=== PATIENT | male | born 1975 | race Caucasian/White ===

== ENCOUNTER 2016-07-01 11:41 | Emergency (ER) | payer OTHER ==
[~2016-07-01] VITALS: Ht 177.8 cm; Wt 89.2 kg
[~2016-07-01 11:41] MED LIST: COLACE100 MG PO; ENDOCET 5-3251 EACH PO; FLEXERIL10 MG PO; FLOMAX0.4 MG PO; FLONASE16 G1 BOTH NARES; HYCODAN SYRUP480 ML PO; MOBIC15 MG PO; MOTRIN600 MG PO; MOTRIN800 MG PO; MUCUS ER600 MG PO; NAPROSYN500 MG PO; NAPROXEN500 MG PO; NOHOMEMEDS; NORCO 5/3251 TABLET PO; OXYCODONE HCL5 MG PO; PERCOCET 10/1 TABLET PO; PERCOCET 5/31 TABLET PO; PERCOCET 7.51 TABLET PO; PHENERGAN-CODE120 ML PO; PRILOSEC40 MG PO; Percocet 5/325,Endoc PO; REGLAN10 MG PO; SKELAXIN800 MG PO; TAMSULOSIN HCL0.4 MG PO; TESSALON PERLE100 MG PO; TORADOL10 MG PO; ULTRAM50 MG PO; VENTOLIN HFA18 GM IH; ZOFRAN ODT4 MG PO; ZOFRAN ODT8 MG PO; ZOFRAN4 MG PO; Zofran PO
[2016-07-01 12:47] LABS: ADD MIUA? NO; BILIRUBIN NEGATIVE; BLOOD NEGATIVE; COLOR YELLOW ((YELLOW)); GLUCOSE (STRIP) NEGATIVE; KETONES NEGATIVE; LEUKOCYTES NEGATIVE; NITRITE NEGATIVE; PROTEIN (STRIP) NEGATIVE; SPECIFIC GRAVITY 1.022 (1.000-1.030); UROBILINOGEN 0.2 MG/DL (0.2-1.0)
[2016-07-01 13:07] LABS: EOSINOPHIL COUNT 0.1 K/uL (0-0.3); HEMATOCRIT 39.8 % (38.0-50.0); IMMATURE GRANULOCYTE (%) 0.1 % (0.0-0.7); IMMATURE GRANULOCYTE COUNT 0.1 K/uL; LYMPHOCYTE COUNT 1.9 K/uL (1.0-2.8); MCH 31.7 PG (29.0-34.0); MCHC 34.9 G/DL (30.0-36.0); MCV 90.7 FL (86-99); MEAN PLAT.VOLUME 10.3 uM^3 (9.0-12.4); MONOCYTE (%) 7.5 % (3-12); MONOCYTE COUNT 0.5 K/uL (0-0.8); NEUTROPHIL (%) 63.4 % (45-76); NEUTROPHIL COUNT 4.3 K/uL (1.8-6.4); PLATELET COUNT 224 K/uL (156-360); RBC DIS.WIDTH-CV 12.1 % (11.8-14.6); RBC DIS.WIDTH-SD 39.2 % (39-53); RED BLOOD COUNT 4.39 M/uL (4.00-5.50); WHITE BLOOD COUNT 6.8 K/uL (4.1-10.2)
[2016-07-01 13:19] LABS: CHLORIDE 108 mEq/L (99-109); POTASSIUM 3.8 mEq/L (3.7-5.4); SODIUM 142 mEq/L (136-147)
[2016-07-01 13:21] LABS: GLUCOSE 104 mg/dL (70-99)
[2016-07-01 13:23] LABS: ANION GAP 9 MEQ/L (2-14); TOTAL BILIRUBIN 0.4 mg/dL (0.0-1.0)
[2016-07-01 13:25] LABS: ALKALINE PHOSPHATASE 69 IU/L (3-129); GFR ESTIMATE (CALCULATED) > 59 mL/min/
[2016-07-01 13:26] LABS: UREA NITROGEN (BUN) 14 mg/dL (9-23)
[2016-07-01 13:28] LABS: LIPASE 251 U/L (1.0-51.0)
[2016-07-01] MEDS ORDERED: ZOFRAN ODT8 MG PO (16:12)
[2016-07-01] MEDS ORDERED: PERCOCET 5/31 TABLET PO (16:12)
[2016-07-01 16:36] VITALS: BP 140/75
== END 2016-07-01 16:37 | disposition home or self-care (01) ==
LOC: EXP 11:41 → EME 11:41 → EXP 16:37
PROVIDERS: Physician Assistant
DX: K85.90 Acute pancreatitis without necrosis or infection, unspecified (principal); S90.31XA Contusion of right foot, initial encounter; W20.8XXA Other cause of strike by thrown, projected or falling object, initial encounter; R19.7 Diarrhea, unspecified; Z87.442 Personal history of urinary calculi; Z87.891 Personal history of nicotine dependence; Z98.890 Other specified postprocedural states
CPT/HCPCS: 73630; 76705; 80053; 81003; 83690; 85025; 99281; 99284

== ENCOUNTER 2016-07-17 09:16 | Emergency (ER) | payer OTHER ==
[~2016-07-17] VITALS: Ht 177.8 cm; Wt 88.3 kg
[2016-07-17 09:41] LABS: ADD MIUA? NO; BILIRUBIN NEGATIVE; BLOOD NEGATIVE; COLOR YELLOW ((YELLOW)); GLUCOSE (STRIP) NEGATIVE; KETONES NEGATIVE; LEUKOCYTES NEGATIVE; NITRITE NEGATIVE; PROTEIN (STRIP) NEGATIVE; SPECIFIC GRAVITY 1.024 (1.000-1.030); UCUL ADDED? NO; UROBILINOGEN 0.2 MG/DL (0.2-1.0)
[2016-07-17 09:52] LABS: HEMATOCRIT 44.7 % (38.0-50.0); MCH 30.5 PG (29.0-34.0); MCHC 34.2 G/DL (30.0-36.0); MCV 89.2 FL (86-99); MEAN PLAT.VOLUME 10.7 uM^3 (9.0-12.4); PLATELET COUNT 259 K/uL (156-360); RBC DIS.WIDTH-CV 12.1 % (11.8-14.6); RBC DIS.WIDTH-SD 38.7 % (39-53); RED BLOOD COUNT 5.01 M/uL (4.00-5.50)
[2016-07-17 10:04] LABS: CHLORIDE 105 mEq/L (99-109); POTASSIUM 3.9 mEq/L (3.7-5.4); SODIUM 139 mEq/L (136-147)
[2016-07-17 10:06] LABS: GLUCOSE 100 mg/dL (70-99)
[2016-07-17 10:08] LABS: ANION GAP 11 MEQ/L (2-14)
[2016-07-17 10:11] LABS: GFR ESTIMATE (CALCULATED) > 59 mL/min/; UREA NITROGEN (BUN) 21 mg/dL (9-23)
[2016-07-17 10:20] LABS: TOTAL BILIRUBIN 0.6 mg/dL (0.0-1.0)
[2016-07-17 10:21] LABS: ALKALINE PHOSPHATASE 76 IU/L (3-129)
[2016-07-17 10:24] LABS: DIRECT BILIRUBIN 0.2 mg/dL (0.0-0.3)
[2016-07-17 10:25] LABS: LIPASE 155 U/L (1.0-51.0)
[2016-07-17 11:05] LABS: TROP-I INTERPRETATION NEGATIVE; TROPONIN-I < 0.01 ng/mL (0.0-0.30)
[2016-07-17] MEDS ORDERED: PERCOCET 5/31 TABLET PO (12:13)
[2016-07-17] MEDS ORDERED: ZOFRAN ODT4 MG PO (12:13)
[2016-07-17] MEDS ORDERED: FLOMAX0.4 MG PO (12:13)
[2016-07-17 12:30] VITALS: BP 138/88
== END 2016-07-17 12:30 | disposition home or self-care (01) ==
LOC: EME 09:16 → EXP 09:16
PROVIDERS: Nurse Practitioner Family
DX: N20.0 Calculus of kidney (principal); K85.90 Acute pancreatitis without necrosis or infection, unspecified; Z87.442 Personal history of urinary calculi; Z87.891 Personal history of nicotine dependence; Z88.8 Allergy status to other drugs, medicaments and biological substances; Z88.5 Allergy status to narcotic agent
CPT/HCPCS: 74177; 80048; 80076; 81003; 83690; 84484; 85027; 99281; 99285; J2405; J3010; J7030

== ENCOUNTER 2016-07-28 09:58 | Emergency (ER) | payer OTHER ==
[~2016-07-28] VITALS: Ht 177.8 cm; Wt 89.7 kg
[2016-07-28 11:17] LABS: EOSINOPHIL (%) 2.7 % (0-5); EOSINOPHIL COUNT 0.2 K/uL (0-0.3); HEMATOCRIT 41.7 % (38.0-50.0); IMMATURE GRANULOCYTE (%) 0.2 % (0.0-0.7); IMMATURE GRANULOCYTE COUNT 0.1 K/uL; LYMPHOCYTE COUNT 1.8 K/uL (1.0-2.8); MCH 31.1 PG (29.0-34.0); MCHC 34.5 G/DL (30.0-36.0); MCV 90.1 FL (86-99); MEAN PLAT.VOLUME 10.9 uM^3 (9.0-12.4); MONOCYTE (%) 6.1 % (3-12); MONOCYTE COUNT 0.3 K/uL (0-0.8); NEUTROPHIL (%) 59.1 % (45-76); NEUTROPHIL COUNT 3.3 K/uL (1.8-6.4); PLATELET COUNT 240 K/uL (156-360); RBC DIS.WIDTH-CV 12.1 % (11.8-14.6); RBC DIS.WIDTH-SD 38.9 % (39-53); RED BLOOD COUNT 4.63 M/uL (4.00-5.50); WHITE BLOOD COUNT 5.6 K/uL (4.1-10.2)
[2016-07-28 11:23] LABS: CHLORIDE 106 mEq/L (99-109); POTASSIUM 4.1 mEq/L (3.7-5.4); SODIUM 140 mEq/L (136-147)
[2016-07-28 11:25] LABS: GLUCOSE 100 mg/dL (70-99)
[2016-07-28 11:27] LABS: ANION GAP 8 MEQ/L (2-14); TOTAL BILIRUBIN 0.2 mg/dL (0.0-1.0)
[2016-07-28 11:28] LABS: ADD MIUA? NO; BILIRUBIN NEGATIVE; BLOOD NEGATIVE; COLOR YELLOW ((YELLOW)); GLUCOSE (STRIP) NEGATIVE; KETONES NEGATIVE; LEUKOCYTES NEGATIVE; NITRITE NEGATIVE; PROTEIN (STRIP) NEGATIVE; SPECIFIC GRAVITY 1.014 (1.000-1.030); UCUL ADDED? NO; UROBILINOGEN 0.2 MG/DL (0.2-1.0)
[2016-07-28 11:29] LABS: ALKALINE PHOSPHATASE 70 IU/L (3-129); GFR ESTIMATE (CALCULATED) > 59 mL/min/
[2016-07-28 11:30] LABS: UREA NITROGEN (BUN) 18 mg/dL (9-23)
[2016-07-28 11:32] LABS: LIPASE 90 U/L (1.0-51.0)
[2016-07-28] MEDS ORDERED: PERCOCET 5/31 TABLET PO (12:21)
[2016-07-28 12:52] VITALS: BP 123/64
== END 2016-07-28 12:53 | disposition home or self-care (01) ==
LOC: EXP 09:58 → EME 09:58 → EXP 12:53
PROVIDERS: Physician Assistant
DX: R10.9 Unspecified abdominal pain (principal); R74.8 Abnormal levels of other serum enzymes; Z87.442 Personal history of urinary calculi
CPT/HCPCS: 80053; 81003; 83690; 85025; 99281; 99285; J1885; J2270; J2405; J7030

== ENCOUNTER 2016-08-09 19:39 | Emergency (ER) | payer OTHER ==
[~2016-08-09] VITALS: Ht 177.8 cm; Wt 90.4 kg
[2016-08-09 20:45] LABS: HEMATOCRIT 44.9 % (38.0-50.0); MCH 30.7 PG (29.0-34.0); MCHC 33.6 G/DL (30.0-36.0); MCV 91.3 FL (86-99); MEAN PLAT.VOLUME 10.3 uM^3 (9.0-12.4); PLATELET COUNT 279 K/uL (156-360); RBC DIS.WIDTH-CV 11.9 % (11.8-14.6); RED BLOOD COUNT 4.92 M/uL (4.00-5.50)
[2016-08-09 20:47] LABS: WHITE BLOOD COUNT 7.4 K/uL (4.1-10.2)
[2016-08-09 20:58] LABS: CHLORIDE 103 mEq/L (99-109); POTASSIUM 4.1 mEq/L (3.7-5.4); SODIUM 141 mEq/L (136-147)
[2016-08-09 21:00] LABS: GLUCOSE 102 mg/dL (70-99)
[2016-08-09 21:01] LABS: ANION GAP 11 MEQ/L (2-14)
[2016-08-09 21:02] LABS: TOTAL BILIRUBIN 0.2 mg/dL (0.0-1.0)
[2016-08-09 21:03] LABS: ALKALINE PHOSPHATASE 78 IU/L (3-129)
[2016-08-09 21:04] LABS: GFR ESTIMATE (CALCULATED) > 59 mL/min/
[2016-08-09 21:05] LABS: UREA NITROGEN (BUN) 18 mg/dL (9-23)
[2016-08-09 21:07] LABS: LIPASE 207 U/L (1.0-51.0)
[2016-08-09 21:40] LABS: ADD MIUA? NO; BILIRUBIN NEGATIVE; BLOOD NEGATIVE; COLOR YELLOW ((YELLOW)); GLUCOSE (STRIP) NEGATIVE; KETONES NEGATIVE; LEUKOCYTES NEGATIVE; NITRITE NEGATIVE; PROTEIN (STRIP) NEGATIVE; UCUL ADDED? NO; UROBILINOGEN 0.2 MG/DL (0.2-1.0)
[2016-08-09] MEDS ORDERED: PERCOCET 5/31 TABLET PO (23:26)
[2016-08-09 23:43] VITALS: BP 140/89
== END 2016-08-09 23:44 | disposition home or self-care (01) ==
LOC: EME 19:39 → EXP 19:39
PROVIDERS: Physician Assistant
DX: K85.90 Acute pancreatitis without necrosis or infection, unspecified (principal); K21.9 Gastro-esophageal reflux disease without esophagitis; Z87.442 Personal history of urinary calculi; Z87.891 Personal history of nicotine dependence
CPT/HCPCS: 74177; 76705; 80053; 81003; 83690; 85027; 99281; 99285; J2270; J2405; J7030

== ENCOUNTER → 2016-08-13 | Outpatient (CLI) | payer OTHER ==
[~2016-08-13] VITALS: Ht 179.1 cm; Wt 88.9 kg
[2016-08-13 13:09] LABS: AMPHETAMINES QUANT VALUE 0 NG/ML; BARBITUATES QUANT VALUE 0 NG/ML; BENZODIAZEPINES QUANT VALUE 0 NG/ML; BENZODIAZEPINES, URINE SCREEN Negative (200 ng/mL); OPIATES QUANTITATIVE VALUE 0 NG/ML; PHENCYCLIDINE QUANT VALUE 0 NG/ML
== END | disposition home or self-care (01) ==
LOC: AMB 11:58 → OPR 12:00 → AMB 12:00
PROVIDERS: Internal Medicine Gastroenterology
DX: K85.90 Acute pancreatitis without necrosis or infection, unspecified (principal); R10.13 Epigastric pain; Z88.5 Allergy status to narcotic agent; Z88.8 Allergy status to other drugs, medicaments and biological substances
CPT/HCPCS: 80306 90; J2405

== ENCOUNTER 2016-08-15 20:58 | Emergency (ER) | payer OTHER ==
[~2016-08-15] VITALS: Ht 177.8 cm; Wt 88.2 kg
[2016-08-15 21:44] LABS: HEMATOCRIT 45.1 % (38.0-50.0); MCH 30.3 PG (29.0-34.0); MCV 91.7 FL (86-99); MEAN PLAT.VOLUME 10.3 uM^3 (9.0-12.4); PLATELET COUNT 288 K/uL (156-360); RBC DIS.WIDTH-CV 11.9 % (11.8-14.6); RBC DIS.WIDTH-SD 39.9 % (39-53); RED BLOOD COUNT 4.92 M/uL (4.00-5.50); WHITE BLOOD COUNT 6.6 K/uL (4.1-10.2)
[2016-08-15 21:52] LABS: CHLORIDE 105 mEq/L (99-109); POTASSIUM 4.1 mEq/L (3.7-5.4); SODIUM 140 mEq/L (136-147)
[2016-08-15 21:54] LABS: GLUCOSE 103 mg/dL (70-99)
[2016-08-15 21:56] LABS: ANION GAP 9 MEQ/L (2-14)
[2016-08-15 21:58] LABS: ALKALINE PHOSPHATASE 77 IU/L (3-129); GFR ESTIMATE (CALCULATED) > 59 mL/min/
[2016-08-15 22:02] LABS: LIPASE 56 U/L (1.0-51.0)
[2016-08-15 22:07] LABS: TOTAL BILIRUBIN 0.3 mg/dL (0.0-1.0); UREA NITROGEN (BUN) 23 mg/dL (9-23)
[2016-08-16 00:13] LABS: TROP-I INTERPRETATION NEGATIVE; TROPONIN-I < 0.01 ng/mL (0.0-0.30)
[2016-08-16 01:01] LABS: ADD MIUA? NO; BILIRUBIN NEGATIVE; BLOOD NEGATIVE; COLOR YELLOW ((YELLOW)); GLUCOSE (STRIP) NEGATIVE; KETONES NEGATIVE; LEUKOCYTES NEGATIVE; NITRITE NEGATIVE; PROTEIN (STRIP) NEGATIVE; SPECIFIC GRAVITY 1.027 (1.000-1.030); UCUL ADDED? NO; UROBILINOGEN 0.2 MG/DL (0.2-1.0)
[2016-08-16 01:48] LABS: TROP-I INTERPRETATION NEGATIVE; TROPONIN-I < 0.01 ng/mL (0.0-0.30)
[2016-08-16 02:06] VITALS: BP 105/60
== END 2016-08-16 02:06 | disposition home or self-care (01) ==
LOC: EME 20:58
PROVIDERS: Emergency Medicine
DX: R10.13 Epigastric pain (principal); R07.89 Other chest pain; Z87.19 Personal history of other diseases of the digestive system; R11.0 Nausea; N20.0 Calculus of kidney; Z87.442 Personal history of urinary calculi; Z87.891 Personal history of nicotine dependence
CPT/HCPCS: 74176; 80053; 81003; 83690; 84484; 85025; 85027; 93005; 99281; 99284; J1885; J2765; J7030

== ENCOUNTER 2016-12-09 01:36 | Emergency (ER) | payer OTHER ==
[~2016-12-09] VITALS: Ht 177.8 cm; Wt 91.0 kg
[2016-12-09 02:15] LABS: HEMATOCRIT 42.4 % (38.0-50.0); MCH 30.8 PG (29.0-34.0); MCHC 34.2 G/DL (30.0-36.0); PLATELET COUNT 244 K/uL (156-360); RBC DIS.WIDTH-CV 11.9 % (11.8-14.6); RBC DIS.WIDTH-SD 39.6 % (39-53); RED BLOOD COUNT 4.71 M/uL (4.00-5.50); WHITE BLOOD COUNT 11.1 K/uL (4.1-10.2)
[2016-12-09 02:19] LABS: ADD MIUA? YES; BILIRUBIN NEGATIVE; BLOOD SMALL; COLOR YELLOW ((YELLOW)); GLUCOSE (STRIP) NEGATIVE; KETONES NEGATIVE; LEUKOCYTES NEGATIVE; NITRITE NEGATIVE; PROTEIN (STRIP) NEGATIVE; SPECIFIC GRAVITY 1.021 (1.000-1.030); UROBILINOGEN 0.2 MG/DL (0.2-1.0)
[2016-12-09 02:27] LABS: CHLORIDE 108 mEq/L (99-109); POTASSIUM 3.8 mEq/L (3.7-5.4); SODIUM 139 mEq/L (136-147)
[2016-12-09 02:29] LABS: GLUCOSE 121 mg/dL (70-99)
[2016-12-09 02:30] LABS: ANION GAP 9 MEQ/L (2-14)
[2016-12-09 02:31] LABS: TOTAL BILIRUBIN 0.3 mg/dL (0.0-1.0)
[2016-12-09 02:31] LABS: BACTERIA NONE SEEN /HPF; EPITHELIAL CELLS RARE /HPF; MUCUS TRACE /LPF; RED BLOOD CELLS 0-5 /HPF (0-5); UCUL ADDED? NO; WHITE BLOOD CELLS 0-5 /HPF (0-5)
[2016-12-09 02:33] LABS: ALKALINE PHOSPHATASE 79 IU/L (3-129); GFR ESTIMATE (CALCULATED) > 59 mL/min/
[2016-12-09 02:34] LABS: UREA NITROGEN (BUN) 18 mg/dL (9-23)
[2016-12-09] MEDS ORDERED: PERCOCET 5/31 TABLET PO (04:05)
[2016-12-09] MEDS ORDERED: ZOFRAN8 MG PO (04:05)
[2016-12-09 04:10] LABS: LIPASE 54 U/L (1.0-51.0)
[2016-12-09 04:21] VITALS: BP 152/81
== END 2016-12-09 04:22 | disposition home or self-care (01) ==
LOC: EME 01:36
DX: N20.0 Calculus of kidney (principal); Z87.442 Personal history of urinary calculi; Z88.6 Allergy status to analgesic agent; Z87.891 Personal history of nicotine dependence; Z87.19 Personal history of other diseases of the digestive system
CPT/HCPCS: 74176; 80053; 81003; 83690; 85027; 99281; 99285; J1885; J2405; J7030

== ENCOUNTER 2016-12-20 23:52 | Emergency (ER) | payer OTHER ==
[~2016-12-20] VITALS: Ht 177.8 cm; Wt 90.9 kg
[~2016-12-20 23:52] MED LIST changes: +ZOFRAN8 MG PO
[2016-12-21 00:31] LABS: HEMATOCRIT 43.5 % (38.0-50.0); MCH 30.7 PG (29.0-34.0); MCHC 35.2 G/DL (30.0-36.0); MCV 87.2 FL (86-99); MEAN PLAT.VOLUME 10.7 uM^3 (9.0-12.4); PLATELET COUNT 241 K/uL (156-360); RBC DIS.WIDTH-CV 11.9 % (11.8-14.6); RBC DIS.WIDTH-SD 38.1 % (39-53); RED BLOOD COUNT 4.99 M/uL (4.00-5.50); WHITE BLOOD COUNT 9.1 K/uL (4.1-10.2)
[2016-12-21 00:40] LABS: CHLORIDE 108 mEq/L (99-109); POTASSIUM 3.8 mEq/L (3.7-5.4); SODIUM 141 mEq/L (136-147)
[2016-12-21 00:43] LABS: GLUCOSE 132 mg/dL (70-99)
[2016-12-21 00:44] LABS: ANION GAP 15 MEQ/L (2-14)
[2016-12-21 00:45] LABS: TOTAL BILIRUBIN 0.9 mg/dL (0.0-1.0)
[2016-12-21 00:46] LABS: ALKALINE PHOSPHATASE 82 IU/L (3-129); GFR ESTIMATE (CALCULATED) > 59 mL/min/
[2016-12-21 00:47] LABS: UREA NITROGEN (BUN) 19 mg/dL (9-23)
[2016-12-21 01:13] LABS: AMYLASE 47 IU/L (1-118)
[2016-12-21 01:13] LABS: ADD MEDTOX COMMENT Y; AMPHETAMINE NEGATIVE (500 ng/mL); BARBITURATES NEGATIVE (200 ng/mL); BENZODIAZEPINES NEGATIVE (150 ng/mL); COCAINE NEGATIVE (150 ng/mL); INTERNAL CONTROLS VALID? YES; METHADONE NEGATIVE (200 ng/mL); METHAMPHETAMINE NEGATIVE (500 ng/mL); OPIATES (MORPHINE) NEGATIVE (100 ng/mL); OXYCODONE PRESUMPTIVE POSITIVE (100 ng/mL); PHENCYCLIDINE NEGATIVE (25 ng/mL); PROPOXYPHENE NEGATIVE (300 ng/mL); THC CANNABINOIDS PRESUMPTIVE POSITIVE (50 ng/mL); TRICYCLIC ANTIDEPRESSANTS NEGATIVE (300 ng/mL)
[2016-12-21 01:19] LABS: MARIJUANA QUANT VALUE ND NG/ML
[2016-12-21 01:22] LABS: LIPASE 41 U/L (1.0-51.0)
[2016-12-21 01:33] LABS: COLOR YELLOW ((YELLOW)); GLUCOSE (STRIP) NEGATIVE; LEUKOCYTES NEGATIVE; NITRITE NEGATIVE; PH, URINE 7.5 (5-8); PROTEIN (STRIP) TRACE; SPECIFIC GRAVITY 1.015 (1.000-1.030)
[2016-12-21 01:34] LABS: ADD MIUA? NO; BILIRUBIN NEGATIVE; BLOOD NEGATIVE; KETONES MODERATE; UCUL ADDED? NO; UROBILINOGEN 0.2 MG/DL (0.2-1.0)
[2016-12-21 03:03] VITALS: BP 130/71
[2016-12-21] MEDS ORDERED: ZOFRAN ODT4 MG PO (03:07)
== END 2016-12-21 03:14 | disposition home or self-care (01) ==
LOC: EME 23:52
PROVIDERS: Physician Assistant
DX: E86.0 Dehydration (principal); R11.2 Nausea with vomiting, unspecified; R19.7 Diarrhea, unspecified; K21.9 Gastro-esophageal reflux disease without esophagitis; Z87.891 Personal history of nicotine dependence; M54.5 Low back pain
CPT/HCPCS: 74177; 80053; 81003; 82150; 83690; 84999; 85027; 99281; 99285; J2405; J7030

== ENCOUNTER 2017-07-01 12:57 | Emergency (ER) | payer OTHER ==
[~2017-07-01] VITALS: Ht 177.8 cm; Wt 94.7 kg
[2017-07-01 14:06] LABS: HEMATOCRIT 46.4 % (38.0-50.0); HEMOGLOBIN 16.2 G/DL (12.5-16.6); MCH 30.3 PG (29.0-34.0); MCHC 34.9 G/DL (30.0-36.0); MCV 86.9 FL (86-99); PLATELET COUNT 291 K/uL (156-360); RBC DIS.WIDTH-CV 12.1 % (11.8-14.6); RBC DIS.WIDTH-SD 38.5 % (39-53); RED BLOOD COUNT 5.34 M/uL (4.00-5.50); WHITE BLOOD COUNT 7.5 K/uL (4.1-10.2)
[2017-07-01 14:10] LABS: APPEARANCE SL.HAZY ((CLEAR)); BILIRUBIN NEGATIVE; BLOOD NEGATIVE; COLOR YELLOW ((YELLOW)); GLUCOSE (STRIP) NEGATIVE; KETONES NEGATIVE; LEUKOCYTES NEGATIVE; NITRITE NEGATIVE; PROTEIN (STRIP) NEGATIVE; SPECIFIC GRAVITY 1.021 (1.000-1.030); UROBILINOGEN 0.2 MG/DL (0.2-1.0)
[2017-07-01 14:16] LABS: BACTERIA RARE /HPF; EPITHELIAL CELLS RARE /HPF; MUCUS 1+ /LPF; RED BLOOD CELLS 0-5 /HPF (0-5); UCUL ADDED? YES
[2017-07-01 14:37] LABS: ALBUMIN 4.7 g/dL (3.2-4.8)
[2017-07-01 14:38] LABS: CHLORIDE 104 mEq/L (99-109); POTASSIUM 4.6 mEq/L (3.7-5.4); SODIUM 137 mEq/L (136-147)
[2017-07-01 14:40] LABS: GLUCOSE 115 mg/dL (70-99)
[2017-07-01 14:42] LABS: TOTAL BILIRUBIN 0.6 mg/dL (0.0-1.0)
[2017-07-01 14:43] LABS: ALKALINE PHOSPHATASE 86 IU/L (3-129)
[2017-07-01 14:44] LABS: CREATININE 1.1 mg/dL (0.6-1.3); GFR ESTIMATE (CALCULATED) > 59 mL/min/ (58.99-99999)
[2017-07-01 14:45] LABS: AST (GOT) 22 IU/L (2-34); UREA NITROGEN (BUN) 18 mg/dL (9-23)
[2017-07-01 14:46] LABS: ALT (GPT) 25 IU/L (3-49)
[2017-07-01] MEDS ORDERED: CIPRO500 MG PO (16:49)
[2017-07-01] MEDS ORDERED: ZOFRAN4 MG PO (16:52)
[2017-07-01 16:55] VITALS: BP 132/73
== END 2017-07-01 16:55 | disposition home or self-care (01) ==
LOC: RME 12:57 → EME 12:57 → RME 16:55
PROVIDERS: Physician Assistant
DX: N10 Acute pyelonephritis (principal); Z87.442 Personal history of urinary calculi; Z86.73 Personal history of transient ischemic attack (TIA), and cerebral infarction without residual deficits; Z87.891 Personal history of nicotine dependence; Z88.6 Allergy status to analgesic agent; Z88.5 Allergy status to narcotic agent; Z88.8 Allergy status to other drugs, medicaments and biological substances
CPT/HCPCS: 74176; 80053; 81003; 85027; 87086; 99281; 99284; J1885; J2405; J2765; J7030

== ENCOUNTER 2017-07-03 17:38 | Emergency (ER) | payer OTHER ==
[~2017-07-03] VITALS: Ht 177.8 cm; Wt 93.0 kg
[~2017-07-03 17:38] MED LIST changes: +CIPRO500 MG PO
[2017-07-03 18:40] LABS: HEMOGLOBIN 16.2 G/DL (12.5-16.6); MCH 30.6 PG (29.0-34.0); MCHC 34.5 G/DL (30.0-36.0); MCV 88.7 FL (86-99); PLATELET COUNT 243 K/uL (156-360); RBC DIS.WIDTH-CV 12.1 % (11.8-14.6); RBC DIS.WIDTH-SD 39.6 % (39-53); WHITE BLOOD COUNT 4.4 K/uL (4.1-10.2)
[2017-07-03 18:42] LABS: CHLORIDE 104 mEq/L (99-109); POTASSIUM 4.5 mEq/L (3.7-5.4); SODIUM 137 mEq/L (136-147)
[2017-07-03 18:44] LABS: GLUCOSE 111 mg/dL (70-99)
[2017-07-03 18:48] LABS: GFR ESTIMATE (CALCULATED) > 59 mL/min/ (58.99-99999)
[2017-07-03 18:49] LABS: UREA NITROGEN (BUN) 11 mg/dL (9-23)
[2017-07-03] MEDS ORDERED: ZITHROMAX500 MG PO (18:58)
[2017-07-03] MEDS ORDERED: VENTOLIN HFA18 GM IH (18:58)
[2017-07-03] MEDS ORDERED: TESSALON PERLE100 MG PO (18:58)
[2017-07-03 19:54] VITALS: BP 137/88
== END 2017-07-03 19:55 | disposition home or self-care (01) ==
LOC: EME 17:38
PROVIDERS: Nurse Practitioner Family
DX: J18.9 Pneumonia, unspecified organism (principal); R07.9 Chest pain, unspecified; R56.9 Unspecified convulsions; Z86.73 Personal history of transient ischemic attack (TIA), and cerebral infarction without residual deficits; Z87.442 Personal history of urinary calculi; Z87.891 Personal history of nicotine dependence; Z87.19 Personal history of other diseases of the digestive system
CPT/HCPCS: 71046; 80048; 81003; 85027; 99281; 99284; J0696; J2405; J3010; J7030

== ENCOUNTER 2017-07-08 10:33 | Emergency (ER) | payer OTHER ==
[~2017-07-08] VITALS: Ht 177.8 cm; Wt 94.0 kg
[~2017-07-08 10:33] MED LIST changes: +ZITHROMAX500 MG PO
[2017-07-08 10:47] LABS: HEMATOCRIT 43.2 % (38.0-50.0); HEMOGLOBIN 15.3 G/DL (12.5-16.6); MCHC 35.4 G/DL (30.0-36.0); MCV 87.6 FL (86-99); PLATELET COUNT 278 K/uL (156-360); RBC DIS.WIDTH-CV 11.8 % (11.8-14.6); RBC DIS.WIDTH-SD 38.2 % (39-53); RED BLOOD COUNT 4.93 M/uL (4.00-5.50); WHITE BLOOD COUNT 7.1 K/uL (4.1-10.2)
[2017-07-08 11:02] LABS: ALBUMIN 4.6 g/dL (3.2-4.8)
[2017-07-08 11:03] LABS: CHLORIDE 105 mEq/L (99-109); POTASSIUM 3.8 mEq/L (3.7-5.4); SODIUM 139 mEq/L (136-147)
[2017-07-08 11:05] LABS: GLUCOSE 112 mg/dL (70-99); TOTAL PROTEIN 7.6 g/dL (6.4-8.3)
[2017-07-08 11:07] LABS: TOTAL BILIRUBIN 0.5 mg/dL (0.0-1.0)
[2017-07-08 11:08] LABS: ALKALINE PHOSPHATASE 89 IU/L (3-129)
[2017-07-08 11:09] LABS: GFR ESTIMATE (CALCULATED) > 59 mL/min/ (58.99-99999)
[2017-07-08 11:10] LABS: AST (GOT) 21 IU/L (2-34); UREA NITROGEN (BUN) 18 mg/dL (9-23)
[2017-07-08 11:11] LABS: ALT (GPT) 42 IU/L (3-49)
[2017-07-08 11:12] LABS: LIPASE 38 U/L (1.0-51.0)
[2017-07-08 11:19] LABS: TROP-I INTERPRETATION NEGATIVE; TROPONIN-I < 0.01 ng/mL (0.0-0.30)
[2017-07-08 12:01] LABS: APPEARANCE CLEAR ((CLEAR)); BILIRUBIN NEGATIVE; BLOOD NEGATIVE; COLOR YELLOW ((YELLOW)); GLUCOSE (STRIP) NEGATIVE; KETONES NEGATIVE; LEUKOCYTES NEGATIVE; NITRITE NEGATIVE; PROTEIN (STRIP) 30; SPECIFIC GRAVITY 1.029 (1.000-1.030); UCUL ADDED? NO; UROBILINOGEN 0.2 MG/DL (0.2-1.0)
[2017-07-08] MEDS ORDERED: OMEPRAZOLE40 M1 PO (13:55)
[2017-07-08] MEDS ORDERED: ZOFRAN4 MG PO (13:55)
[2017-07-08] MEDS ORDERED: ULTRAM50 MG PO (13:55)
[2017-07-08 14:14] LABS: TROP-I INTERPRETATION NEGATIVE; TROPONIN-I < 0.01 ng/mL (0.0-0.30)
[2017-07-08 14:25] VITALS: BP 145/89
== END 2017-07-08 14:26 | disposition home or self-care (01) ==
LOC: EME 10:33
PROVIDERS: Physician Assistant
DX: R10.13 Epigastric pain (principal); Z87.442 Personal history of urinary calculi; Z86.73 Personal history of transient ischemic attack (TIA), and cerebral infarction without residual deficits; Z87.891 Personal history of nicotine dependence; Z88.6 Allergy status to analgesic agent; Z88.5 Allergy status to narcotic agent; Z88.8 Allergy status to other drugs, medicaments and biological substances
CPT/HCPCS: 71046; 76705; 80053; 81003; 83690; 84484; 85027; 93005; 99281; 99284; J3010

== ENCOUNTER 2017-07-09 16:26 | Emergency (ER) | payer OTHER ==
[~2017-07-09] VITALS: Ht 177.8 cm; Wt 93.6 kg
[~2017-07-09 16:26] MED LIST changes: +OMEPRAZOLE40 M1 PO
[2017-07-09 19:36] VITALS: BP 125/72
== END 2017-07-09 19:37 | disposition home or self-care (01) ==
LOC: EME 16:26
PROC: 0HQGXZZ Repair Left Hand Skin, External Approach (ICD-10-PCS; principal; 2017-07-09)
DX: S61.412A Laceration without foreign body of left hand, initial encounter (principal); W45.8XXA Other foreign body or object entering through skin, initial encounter; W22.8XXA Striking against or struck by other objects, initial encounter; Y92.009 Unspecified place in unspecified non-institutional (private) residence as the place of occurrence of the external cause; R51 Headache
CPT/HCPCS: 73130; 99281; 99284

== ENCOUNTER 2017-10-04 18:46 | Emergency (ER) | payer OTHER ==
[~2017-10-04] VITALS: Ht 177.8 cm; Wt 94.0 kg
[2017-10-04] MEDS ORDERED: MOTRIN800 MG PO (21:13)
[2017-10-04 21:56] VITALS: BP 123/72
== END 2017-10-04 21:57 | disposition home or self-care (01) ==
LOC: EME 18:46
DX: S83.92XA Sprain of unspecified site of left knee, initial encounter (principal); W21.89XA Striking against or struck by other sports equipment, initial encounter; Y93.64 Activity, baseball; Z87.891 Personal history of nicotine dependence; Z88.5 Allergy status to narcotic agent; Z88.6 Allergy status to analgesic agent; Z88.8 Allergy status to other drugs, medicaments and biological substances
CPT/HCPCS: 73564; 99281; 99284

== ENCOUNTER 2017-12-25 12:03 | Emergency (ER) | payer OTHER ==
[~2017-12-25] VITALS: Ht 177.8 cm; Wt 96.0 kg
[2017-12-25 12:50] LABS: APPEARANCE CLEAR ((CLEAR)); BILIRUBIN NEGATIVE; BLOOD LARGE; COLOR YELLOW ((YELLOW)); GLUCOSE (STRIP) NEGATIVE; KETONES NEGATIVE; LEUKOCYTES NEGATIVE; NITRITE NEGATIVE; PROTEIN (STRIP) NEGATIVE; SPECIFIC GRAVITY 1.026 (1.000-1.030); UROBILINOGEN 0.2 MG/DL (0.2-1.0)
[2017-12-25 12:52] LABS: BACTERIA RARE /HPF; EPITHELIAL CELLS RARE /HPF; MUCUS 1+ /LPF; RED BLOOD CELLS TNTC /HPF (0-5); UCUL ADDED? YES; WHITE BLOOD CELLS 0-5 /HPF (0-5)
[2017-12-25 13:06] LABS: HEMATOCRIT 42.9 % (38.0-50.0); HEMOGLOBIN 14.8 G/DL (12.5-16.6); MCH 31.1 PG (29.0-34.0); MCHC 34.5 G/DL (30.0-36.0); MCV 90.1 FL (86-99); PLATELET COUNT 274 K/uL (156-360); RBC DIS.WIDTH-CV 11.9 % (11.8-14.6); RBC DIS.WIDTH-SD 39.1 % (39-53); RED BLOOD COUNT 4.76 M/uL (4.00-5.50); WHITE BLOOD COUNT 5.8 K/uL (4.1-10.2)
[2017-12-25 13:14] LABS: ALBUMIN 4.6 g/dL (3.2-4.8)
[2017-12-25 13:15] LABS: CHLORIDE 107 mEq/L (99-109); POTASSIUM 4.2 mEq/L (3.7-5.4); SODIUM 140 mEq/L (136-147)
[2017-12-25 13:17] LABS: GLUCOSE 107 mg/dL (70-99); TOTAL PROTEIN 7.6 g/dL (6.4-8.3)
[2017-12-25 13:19] LABS: TOTAL BILIRUBIN 0.4 mg/dL (0.0-1.0)
[2017-12-25 13:20] LABS: ALKALINE PHOSPHATASE 82 IU/L (3-129)
[2017-12-25 13:21] LABS: CREATININE 1.1 mg/dL (0.6-1.3); GFR ESTIMATE (CALCULATED) > 59 mL/min/ (58.99-99999)
[2017-12-25 13:22] LABS: AST (GOT) 17 IU/L (2-34); UREA NITROGEN (BUN) 13 mg/dL (9-23)
[2017-12-25 13:23] LABS: ALT (GPT) 28 IU/L (3-49)
[2017-12-25 13:24] LABS: LIPASE 65 U/L (1.0-51.0)
[2017-12-25 13:25] LABS: SOURCE URINE
[2017-12-25] MEDS ORDERED: MOTRIN800 MG PO (13:49)
[2017-12-25] MEDS ORDERED: FLOMAX0.4 MG PO (13:49)
[2017-12-25] MEDS ORDERED: PERCOCET 5/31 TABLET PO (13:49)
[2017-12-25] MEDS ORDERED: ZOFRAN4 MG PO (13:49)
[2017-12-25 14:20] VITALS: BP 124/82
[2017-12-28 12:33] LABS: CHLAMYDIA TRACHOMATIS NEGATIVE; NEISSERIA GONORRHOEAE NEGATIVE
== END 2017-12-25 14:21 | disposition home or self-care (01) ==
LOC: EME 12:03
PROVIDERS: Nurse Practitioner Family
DX: N13.2 Hydronephrosis with renal and ureteral calculous obstruction (principal); F17.200 Nicotine dependence, unspecified, uncomplicated; Z87.19 Personal history of other diseases of the digestive system; Z87.442 Personal history of urinary calculi; Z86.73 Personal history of transient ischemic attack (TIA), and cerebral infarction without residual deficits; Z90.49 Acquired absence of other specified parts of digestive tract; Z88.6 Allergy status to analgesic agent; Z88.5 Allergy status to narcotic agent; Z88.8 Allergy status to other drugs, medicaments and biological substances
CPT/HCPCS: 74176; 80053; 81003; 83690; 85027; 87086; 87491; 87591; 99281; 99284; J1885; J2765; J7030